=== PATIENT | male | born 1990 | race Caucasian/White ===

== ENCOUNTER 2018-10-03 18:55 | Emergency (ER) | payer OTHER ==
[2018-10-03] MEDS: IBUPROFEN 600 MG TAB PO (20:21)
== END 2018-10-03 21:22 | disposition home or self-care (01) ==
LOC: FTE 18:55
DX: T52.8X1A Toxic effect of other organic solvents, accidental (unintentional), initial encounter (principal)
CPT/HCPCS: 99282; Z7502